=== PATIENT | male | born 2000 | race Caucasian/White ===

== ENCOUNTER 2019-06-18 13:57 | Emergency (ER) | payer SELFPAY ==
[~2019-06-18] VITALS: Ht 180.3 cm; Wt 75.0 kg
[2019-06-18 14:08] VITALS: Ht 180.3 cm; Wt 75.0 kg
[2019-06-18 14:49] LABS: BASOPHILS 0.3 % (0-2); EOSINOPHILS 0.3 % (0-7); HEMATOCRIT 41.3 % (42.0-54.0); HEMOGLOBIN 14.3 g/dL (13.5-17.5); IMMATURE GRANULOCYTES 0.2 % (0-5); LYMPHOCYTES 21.5 % (15-50); MCHC 34.6 g/dL (31.0-37.0); MCV 89.6 fL (80.0-100.0); MEAN PLATELET VOLUME 9.2 fL (7.4-10.4); MONOCYTES 12.3 % (2-11); NEUTROPHILS 65.4 % (40-80); PLATELET COUNT 250 10x3/uL (130-400); RBC 4.61 10x6/uL (4.20-6.10); RDW 11.7 % (11.5-14.5); WBC 6.1 10x3/uL (4.8-10.8)
[2019-06-18] MEDS ORDERED: KEPPRA500 MG PO (14:52)
[2019-06-18 15:00] LABS: CALC OSMOLALITY 283 mosm/kg (275-300); CARBON DIOXIDE 24.5 mmol/L (21.0-32.0); CHLORIDE - SERUM 107 mmol/L (98-107); CREATININE - SERUM 0.8 mg/dL (0.6-1.3); GLUCOSE 100 mg/dL (74-106); SODIUM 143 mmol/L (136-145); UREA NITROGEN 10 mg/dL (7-18); eGFR NON AFRICAN AMERICAN > 90 mL/min (90-120)
[2019-06-18 15:01] LABS: BILIRUBIN NEGATIVE (NEGATIVE); GLUCOSE NEGATIVE (NEGATIVE); KETONE SMALL mg/dL (NEGATIVE); NITRITE NEGATIVE (NEGATIVE); UROBILINOGEN NORMAL (NORMAL)
[2019-06-18 15:05] VITALS: BP 130/73
[2019-06-18 15:07] LABS: ALBUMIN 3.7 g/dL (3.4-5.0); ALKALINE PHOSPHATASE 93 U/L (30-120); ALT (SGPT) 23 U/L (10-68); PROTEIN - SERUM 7.4 g/dL (6.4-8.2)
== END 2019-06-18 15:47 | disposition home or self-care (01) ==
LOC: D.ER 13:57
PROVIDERS: Emergency Medicine
DX: G40.909 Epilepsy, unspecified, not intractable, without status epilepticus (principal); R51 Headache; E11.9 Type 2 diabetes mellitus without complications